=== PATIENT | female | born 1980 | race Caucasian/White ===

== ENCOUNTER 2018-10-22 16:03 | Emergency (ER) | payer BC ==
[2018-10-22] MEDS ORDERED: Ketorolac 60 MG/2 ML SDV IM ONE (16:28)
--- NOTE | 2018-10-22 17:08 | EDM.PDOC ---
ED HPI GENERAL MEDICAL PROBLEM - General Chief Complaint: General Stated Complaint: PAIN IN JAW Time Seen by Provider: 10/22/18 16:26 Source of Information: Reports: Patient History Limitations: Reports: No Limitations - History of Present Illness INITIAL COMMENTS - FREE TEXT/NARRATIVE: HISTORY AND PHYSICAL: History of present illness: Patient is a 38-year-old female presents to the ED today with concern for left TMJ pain. Patient states she has a long history of TMJ pain and that this is the exact same pain that she has had. Patient rates her pain a 10/10 and describes it as "achy". Patient states that she comes into the ED today because the Excedrin migraine pill that she took earlier today did not work for her pain. Patient states she took 1 pill this morning and took 1 pill this afternoon. Patient denies injury or trauma to the area. Patient has full range of motion of her jaw has been able to eat and drink appropriately. Patient denies fever, chills, chest pain, shortness of breath, or cough. Denies headache, neck stiff ness, change in vision, syncope, or near syncope. Denies nausea, vomiting, abdominal pain, diarrhea, constipation, or dysuria. Has not noted any blood in urine or stool. Review of systems: As per history of present illness and below otherwise all systems reviewed and negative. Past medical history: As per history of present illness and as reviewed below otherwise noncontributory. Surgical history: As per history of present illness and as reviewed below otherwise noncontributory. Social history: See social history for further information Family history: As per history of present illness and as reviewed below otherwise noncontributory. Physical exam: General: Patient is alert, oriented, and in no acute distress. Patient sitting comfortably on exam table. HEENT: Atraumatic, normocephalic, pupils equal and reactive bilaterally, negative for conjunctival pallor or scleral icterus, mucous membranes moist, TMs normal bilaterally, throat clear, neck supple, nontender, trachea midline. No drooling or trismus noted. No meningeal signs. No hot potato voice noted. Patient has full ROM of TMJ joint but expresses mild pain with ROM. There is no soft tissue edema, obvious deformity, or crepitus or pain to palpation of the TMJ or mandible. Negative pain to palpation of the maxillary sinus. Lungs: Clear to auscultation, breath sounds equal bilaterally, chest nontender. Heart: S1S2, regular rate and rhythm without overt murmur Abdomen: Soft, nondistended, nontender. Negative for masses or hepatosplenomegaly. Negative for costovertebral tenderness. Pelvis: Stable nontender. Genitourinary: Deferred. Rectal: Deferred. Skin: Intact, warm, dry. No lesions or rashes noted. Extremities: Atraumatic, negative for cords or calf pain. Neurovascular unremarkable. Neuro: Awake, alert, oriented. Cranial nerves II through XII unremarkable. Cerebellum unremarkable. Motor and sensory unremarkable throughout. Exam nonfocal. Notes: Patient does not desire labwork or imaging at this time and only requests help with pain management. Patient declines all imaging and lab work today. On exam, I was unable to determine where patient stated complaints are. Discussed proper dosing of ibuprofen and the importance of switching to this rather than Excedrin Migraine for pain relief. Discussed the importance of follow-up with the primary care provider. Supportive care measures were reviewed and discussed. Voices understanding and is agreeable to plan of care. Denies any further questions or concerns at this time. Diagnostics: None Therapeutics: Toradol Prescription: Diclofenac Impression: TMJ syndrome Plan: 1. Take medication as prescribed. You can also alternate Tylenol and ibuprofen as directed for pain and discomfort. 2. Apply heat and ice to the area 15 minutes on 15 minutes off to minimize pain and discomfort. 3. Follow with the primary care provider as discussed. 4. Return to the ED as needed and as discussed. Definitive disposition and diagnosis as appropriate pending reevaluation and review of above. left jaw Pain Score (Numeric/FACES): 10 - Related Data Allergies Allergy/AdvReac Type Severity Reaction Status Date / Time promethazine HCl Allergy Disorientat Verified 10/22/18 16:24 [From Phenergan] ion Home Meds: Home Meds Diclofenac Sodium [Voltaren] 75 mg PO BIDMEALS PRN #12 tab.cr 10/22/18 [Rx] Past Medical History - Past Health History Medical/Surgical History: Denies Medical/Surgical History Other HEENT History: TMJ Gastrointestinal History: Reports: Irritable Bowel Syndrome Other Gastrointestinal History: " hyper glycemic" - Infectious Disease History Infectious Disease History: Reports: Chicken Pox Social & Family History - Family History Family Medical History: Noncontributory - Tobacco Use Smoking Status *Q: Never Smoker - Caffeine Use Caffeine Use: Reports: Coffee - Recreational Drug Use Recreational Drug Use: No ED ROS GENERAL - Review of Systems Review Of Systems: ROS reveals no pertinent complaints other than HPI. ED EXAM, GENERAL - Physical Exam Exam: See Below (See dictation) Course - Vital Signs Last Recorded V/S: Last Vital Signs Temp 35.8 C 10/22/18 16:24 Pulse 65 10/22/18 16:24 Resp 18 10/22/18 16:24 BP 151/86 H 10/22/18 16:24 Pulse Ox 95 10/22/18 16:24 - Orders/Labs/Meds Meds: Medications Discontinued Medications Generic Name Dose Route Start Last Admin Trade Name Freq PRN Reason Stop Dose Admin Ketorolac Tromethamine 60 mg 10/22/18 16:28 10/22/18 16:33 Toradol IM 10/22/18 16:29 60 mg ONETIME ONE Administration Departure - Departure Time of Disposition: 17:07 Disposition: Home, Self-Care 01 Clinical Impression: TMJ (temporomandibular joint syndrome) - Discharge Information Prescriptions: Diclofenac Sodium [Voltaren] 75 mg PO BIDMEALS PRN #12 tab.cr PRN Reason: Pain Referrals: PCP,Unknown [Primary Care Provider] - Forms: ED Department Discharge Additional Instructions: The following information is given to patients seen in the emergency department who are being discharged to home. This information is to outline your options for follow-up care. We provide all patients seen in our emergency department with a follow-up referral. The need for follow-up, as well as the timing and circumstances, are variable depending upon the specifics of your emergency department visit. If you don't have a primary care physician on staff, we will provide you with a referral. We always advise you to contact your personal physician following an emergency department visit to inform them of the circumstance of the visit and for follow-up with them and/or the need for any referrals to a consulting specialist. The emergency department will also refer you to a specialist when appropriate. This referral assures that you have the opportunity for follow-up care with a specialist. All of these measure are taken in an effort to provide you with optimal care, which includes your follow-up. Under all circumstances we always encourage you to contact your private physician who remains a resource for coordinating your care. When calling for follow-up care, please make the office aware that this follow-up is from your recent emergency room visit. If for any reason you are refused follow-up, please contact the [facility] Emergency Department at and asked to speak to the emergency department charge nurse. [facility] Primary Care [address] [place] [address] [facility] [address] [place] [id number] 1. Take medication as prescribed. You can also alternate Tylenol and ibuprofen as directed for pain and discomfort. 2. Apply heat and ice to the area 15 minutes on 15 minutes off to minimize pain and discomfort. 3. Follow with the primary care provider as discussed. 4. Return to the ED as needed and as discussed.
[2018-10-22 17:18] VITALS: BP 131/79
== END 2018-10-22 17:17 | disposition home or self-care (01) ==
LOC: MW.ED 16:03
DX: M26.622 Arthralgia of left temporomandibular joint (principal); Z88.8 Allergy status to other drugs, medicaments and biological substances
CPT/HCPCS: 96372; 99283; J1885

== ENCOUNTER 2021-04-11 11:56 | Emergency (ER) | payer BC ==
--- NOTE | 2021-04-11 13:10 | EDM.PDOC ---
ED HPI GENERAL MEDICAL PROBLEM - General Chief Complaint: Genitourinary Problem Stated Complaint: BLADDER INFECT Time Seen by Provider: 04/11/21 12:10 - History of Present Illness INITIAL COMMENTS - FREE TEXT/NARRATIVE: History of present illness: [] The patient reports urgency to urinate. It is going on 2 to 3 days. She has no back pain no fever no vomiting. The patient has 2 prior UTIs. These were taken care of uneventfully with antibiotics. She does not have any systemic signs of sepsis and feels essentially okay except for the urgency. She wears a diaper but she is not incontinent contrary to the note in the triage record at the time that I first saw the patient. She insists that she has not been incontinent but wears a diaper in case she becomes incontinent because she is in such a hurry to go to the bathroom. Review of systems: As per history of present illness and below otherwise all systems reviewed and negative. Past medical history: As per history of present illness and as reviewed below otherwise noncontributory. Surgical history: As per history of present illness and as reviewed below otherwise noncontributory. Social history: No reported history of drug or alcohol abuse. Family history: As per history of present illness and as reviewed below otherwise noncontributory. Physical exam: Constitutional - well developed, well-nourished and in no acute distress HEENT - normocephalic, no evidence of trauma - external nose and mouth normal - no mass in neck and no JVD - mucosae moist EYES - full EOM, PERRL, no icterus - no evidence of inflammation, injection, or drainage Respiratory - no respiratory distress, equal bilateral expansion, lungs clear to auscultation and no abnormal lung sounds Cardiovascular - Regular Rhythm with S1 and S2 appreciated and no murmur, gallop or rub. GI - abdomen soft without distension or organomegaly - normal bowel sounds - no guard or rebound Musculoskeletal no gross deformity of long bones or joints - no tenderness, swelling or edema Neurologic - Alert and oriented times four - CN II-XII grossly intact - motor sensory and coordination symmetrically normal Psychiatric - appropriate mood and affect with normal thought content Hematologic - No petechiae or purpura - mucosa appropriate color and sclera not pale - normal nail bed color and refill Integument - no rash or evidence of trauma - normal turgor Diagnostics: [] Therapeutics: [] Impression: [] Plan: [] Definitive disposition and diagnosis as appropriate pending reevaluation and review of above. - Related Data Allergies Allergy/AdvReac Type Severity Reaction Status Date / Time promethazine HCl Allergy Disorientat Verified 04/11/21 12:19 [From Phenergan] ion Home Meds: Home Meds Celecoxib 04/11/21 [History] Cyclobenzaprine [Flexeril] 04/11/21 [History] atorvaSTATin [Lipitor] 04/11/21 [History] nitrofurantoin macrocrystaL [Macrodantin] 100 mg PO BID 5 Days #10 capsule 03/18 01/04 [Rx] Past Medical History - Past Health History Medical/Surgical History: Denies Medical/Surgical History Other HEENT History: TMJ Gastrointestinal History: Reports: Irritable Bowel Syndrome Other Gastrointestinal History: " hyper glycemic" - Infectious Disease History Infectious Disease History: Reports: Chicken Pox Social & Family History - Family History Family Medical History: No Pertinent Family History - Tobacco Use Second Hand Smoke Exposure: No - Caffeine Use Caffeine Use: Reports: None - Recreational Drug Use Recreational Drug Use: No ED ROS GENERAL - Review of Systems Review Of Systems: Comprehensive ROS is negative, except as noted in HPI. ED EXAM, GENERAL - Physical Exam Exam: See Below Free Text/Narrative:: My physical exam is in the HPI Course - Vital Signs Last Recorded V/S: Last Vital Signs Temp 35.9 C L 04/11/21 12:15 Pulse 69 04/11/21 12:15 Resp 20 04/11/21 12:15 BP 144/86 H 04/11/21 12:15 Pulse Ox 97 04/11/21 12:15 - Orders/Labs/Meds Orders: Active Orders 24 hr Category Date Time Status CULTURE URINE [MREF] Stat Lab 04/11/21 12:32 Ordered Labs: Laboratory Tests 04/11/21 Range/Units 12:15 Urine Color YELLOW Urine Appearance SLT CLOUDY Urine pH 7.0 (5.0-8.0) Ur Specific [place] 1.020 (1.001-1.035) Urine Protein NEGATIVE (NEGATIVE) mg/dL Urine Glucose (UA) NEGATIVE (NEGATIVE) mg/dL Urine Ketones TRACE H (NEGATIVE) mg/dL Urine Occult Blood TRACE-INTACT H (NEGATIVE) Urine Nitrite NEGATIVE (NEGATIVE) Urine Bilirubin NEGATIVE (NEGATIVE) Urine Urobilinogen 0.2 (<2.0) EU/dL Ur Leukocyte Esterase SMALL H (NEGATIVE) Urine RBC 1-2 (0-2/HPF) Urine WBC 8-12 (0-5/HPF) Ur Epithelial Cells FEW (NONE-FEW) Calcium Oxalate Crystal OCCASIONAL (NEGATIVE) Urine Bacteria FEW (NEGATIVE) Urine Mucus LIGHT (NONE-MOD) Urinalysis Comment Departure - Departure Time of Disposition: 13:10 Disposition: Home, Self-Care 01 Condition: Good Clinical Impression: Acute cystitis - Discharge Information Prescriptions: nitrofurantoin macrocrystaL [Macrodantin] 100 mg PO BID 5 Days #10 capsule Instructions: Urinary Tract Infection, Adult Referrals: Adalberto Pittman MD [Primary Care Provider] - Forms: ED Department Discharge Additional Instructions: Increase fluids. This is just as important as everything else we do. If he has severe back pain vomiting or high fever you need to return for reassessment. The culture was sent so that the doctor that follows you can make sure you on the best appropriate antibiotic. [facility] - Primary Care [address] [place] [address] [place] [address] The following information is given to patients seen in the emergency department who are being discharged to home. This information is to outline your options for follow-up care. We provide all patients seen in our emergency department with a follow-up referral. The need for follow-up, as well as the timing and circumstances, are variable depending upon the specifics of your emergency department visit. If you don't have a primary care physician on staff, we will provide you with a referral. We always advise you to contact your personal physician following an emergency department visit to inform them of the circumstance of the visit and for follow-up with them and/or the need for any referrals to a consulting specialist. The emergency department will also refer you to a specialist when appropriate. This referral assures that you have the opportunity for follow-up care with a specialist. All of these measure are taken in an effort to provide you with optimal care, which includes your follow-up. Under all circumstances we always encourage you to contact your private physician who remains a resource for coordinating your care. When calling for follow-up care, please make the office aware that this follow-up is from your recent emergency room visit. If for any reason you are refused follow-up, please contact the [facility] Emergency Department at and asked to speak to the emergency department charge nurse. Sepsis Event Note (ED) - Evaluation Sepsis Screening Result: No Definite Risk - Focused Exam Vital Signs: Vital Signs Temp Pulse Resp BP Pulse Ox 04/11/21 12:15 35.9 C L 69 20 144/86 H 97 - My Orders Last 24 Hours: My Active Orders 04/11/21 12:32 CULTURE URINE [MREF] Stat - Assessment/Plan Last 24 Hours: My Active Orders 04/11/21 12:32 CULTURE URINE [MREF] Stat
[2021-04-11 13:47] VITALS: BP 149/76; PULSE 62
== END 2021-04-11 13:47 | disposition home or self-care (01) ==
LOC: MW.ED 11:56
DX: N30.00 Acute cystitis without hematuria (principal); Z88.8 Allergy status to other drugs, medicaments and biological substances
CPT/HCPCS: 81001; 87086; 99283

== ENCOUNTER 2021-04-11 16:26 | Emergency (ER) | payer BC ==
[2021-04-11] MEDS ORDERED: Sodium Chloride 0.9% 2.5 ML Syringe FLUSH PRN (17:03)
[2021-04-11] MEDS ORDERED: Ketorolac 15 MG/ML SDV IVPUSH ONE (17:03)
[2021-04-11] MEDS ORDERED: Ondansetron 4 MG/2 ML SDV IVPUSH ONE (17:03)
[2021-04-11] MEDS ORDERED: Sodium Chloride 0.9% 10 ML Syringe FLUSH PRN (17:03)
[2021-04-11] MEDS ORDERED: Sodium Chloride 0.9% 1,000 ML IV ONE (17:04)
--- NOTE | 2021-04-11 17:06 | EDM.PDOC ---
ED HPI GENERAL MEDICAL PROBLEM - General Chief Complaint: Gastrointestinal Problem Stated Complaint: VOMITTING Time Seen by Provider: 04/11/21 16:39 - History of Present Illness INITIAL COMMENTS - FREE TEXT/NARRATIVE: History of present illness: [] Patient complains of back pain and vomiting. She has severe right flank pain like when she had kidney infection in the past. She also has suprapubic pain that radiates up to the right flank. She has nausea and vomiting. She was seen here earlier with cystitis. The urine was convincing for UTI and the patient was sent home on Macrodantin and increase fluids. Subsequently she developed what could be a sending signs. Review of systems: As per history of present illness and below otherwise all systems reviewed and negative. Past medical history: As per history of present illness and as reviewed below otherwise noncontributory. Surgical history: As per history of present illness and as reviewed below otherwise noncontributory. Social history: No reported history of drug or alcohol abuse. Family history: As per history of present illness and as reviewed below otherwise noncontributory. Physical exam: Constitutional - well developed, well-nourished and in no acute distress HEENT - normocephalic, no evidence of trauma - external nose and mouth normal - no mass in neck and no JVD - mucosae moist EYES - full EOM, PERRL, no icterus - no evidence of inflammation, injection, or drainage Respiratory - no respiratory distress, equal bilateral expansion, lungs clear to auscultation and no abnormal lung sounds Cardiovascular - Regular Rhythm with S1 and S2 appreciated and no murmur, gallop or rub. GI - abdomen soft without distension or organomegaly - normal bowel sounds - no guard or rebound Musculoskeletal no gross deformity of long bones or joints - no tenderness, swelling or edema Neurologic - Alert and oriented times four - CN II-XII grossly intact - motor sensory and coordination symmetrically normal Psychiatric - appropriate mood and affect with normal thought content Hematologic - No petechiae or purpura - mucosa appropriate color and sclera not pale - normal nail bed color and refill Integument - no rash or evidence of trauma - normal turgor Diagnostics: [] Therapeutics: [] Impression: [] Plan: [] Definitive disposition and diagnosis as appropriate pending reevaluation and review of above. Right Flank Pain Score (Numeric/FACES): 9 - Related Data Allergies Allergy/AdvReac Type Severity Reaction Status Date / Time promethazine HCl Allergy Disorientat Verified 04/11/21 12:19 [From Phenergan] ion Home Meds: Home Meds Celecoxib 04/11/21 [History] Cyclobenzaprine [Flexeril] 04/11/21 [History] Ondansetron [Zofran ODT] 4 mg PO Q6H PRN #10 tab.dis 04/11/21 [Rx] Phenazopyridine [Pyridium] 100 - 200 mg PO TID PRN #20 tab 04/11/21 [Rx] atorvaSTATin [Lipitor] 04/11/21 [History] nitrofurantoin macrocrystaL [Macrodantin] 100 mg PO BID 5 Days #10 capsule 04/11/21 [Rx] Past Medical History - Past Health History Medical/Surgical History: Denies Medical/Surgical History Other HEENT History: TMJ Gastrointestinal History: Reports: Irritable Bowel Syndrome Other Gastrointestinal History: " hyper glycemic" - Infectious Disease History Infectious Disease History: Reports: Chicken Pox Social & Family History - Family History Family Medical History: No Pertinent Family History - Caffeine Use Caffeine Use: Reports: None ED ROS GENERAL - Review of Systems Review Of Systems: Comprehensive ROS is negative, except as noted in HPI. ED EXAM, GENERAL - Physical Exam Exam: See Below Free Text/Narrative:: My physical exam is in the HPI Course - Vital Signs Text/Narrative:: 1827 labs reviewed and patient interviewed. Appears she has some ascending signs but not pyelonephritis or systemic infection. Last Recorded V/S: Last Vital Signs Temp 36.3 C 04/11/21 16:56 Pulse 67 04/11/21 16:56 Resp 15 04/11/21 16:56 BP 148/74 H 04/11/21 16:56 Pulse Ox 98 04/11/21 16:56 - Orders/Labs/Meds Orders: Active Orders 24 hr Category Date Time Status Sodium Chloride 0.9% [Saline Flush] Med 04/11/21 17:03 Active 10 ml FLUSH ASDIRECTED PRN Sodium Chloride 0.9% [Saline Flush] Med 04/11/21 17:03 Active 2.5 ml FLUSH ASDIRECTED PRN Saline Lock Insert [OM.PC] Stat Oth 04/11/21 17:03 Ordered Medication Orders Sodium Chloride (Sodium Chloride 0.9% 10 Ml Syringe) 10 ml FLUSH ASDIRECTED PRN PRN Reason: Keep Vein Open Last Admin: 04/11/21 17:25 Dose: 10 ml Documented by: XUAN Sodium Chloride (Sodium Chloride 0.9% 2.5 Ml Syringe) 2.5 ml FLUSH ASDIRECTED PRN PRN Reason: Keep Vein Open Last Admin: 04/11/21 17:25 Dose: 2.5 ml Documented by: XUAN Labs: Laboratory Tests 04/11/21 04/11/21 Range/Units 17:44 17:44 WBC 14.92 H (4.0-11.0) K/uL RBC 4.80 (4.30-5.90) M/uL Hgb 15.1 (12.0-16.0) g/dL Hct 43.1 (36.0-46.0) % MCV 89.8 (80.0-98.0) fL MCH 31.5 (27.0-32.0) pg MCHC 35.0 (31.0-37.0) g/dL RDW Std Deviation 43.8 (28.0-62.0) fl RDW Coeff of Amelia 13 (11.0-15.0) % Plt Count 321 (150-400) K/uL MPV 9.70 (7.40-12.00) fL Neut % (Auto) 75.2 (48.0-80.0) % Lymph % (Auto) 18.2 (16.0-40.0) % Dent % (Auto) 5.8 (0.0-15.0) % Eos % (Auto) 0.5 (0.0-7.0) % Baso % (Auto) 0.3 (0.0-1.5) % Neut # (Auto) 11.2 H (1.4-5.7) K/uL Lymph # (Auto) 2.7 H (0.6-2.4) K/uL Dent # (Auto) 0.9 H (0.0-0.8) K/uL Eos # (Auto) 0.1 (0.0-0.7) K/uL Baso # (Auto) 0.0 (0.0-0.1) K/uL Nucleated RBC % 0.0 /100WBC Nucleated RBCs # 0 K/uL Sodium 142 (136-145) mmol/L Potassium 3.3 L (3.5-5.1) mmol/L Chloride 101 (98-107) mmol/L Carbon Dioxide 30.0 (21.0-32.0) mmol/L BUN 8 (7.0-18.0) mg/dL Creatinine 1.2 H (0.6-1.0) mg/dL Est Cr Clr Drug Dosing 44.31 mL/min Estimated GFR (MDRD) 49.5 ml/min Glucose 141 H (74-106) mg/dL Calcium 11.2 H (8.5-10.1) mg/dL Total Bilirubin 0.4 (0.2-1.0) mg/dL AST 61 H (15-37) IU/L ALT 61 (14-63) IU/L Alkaline Phosphatase 98 (46-116) U/L Total Protein 8.5 H (6.4-8.2) g/dL Albumin 4.4 (3.4-5.0) g/dL Globulin 4.1 H (2.6-4.0) g/dL Albumin/Globulin Ratio 1.1 (0.9-1.6) Meds: Medications Generic Name Dose Route Start Last Admin Trade Name Freq PRN Reason Stop Dose Admin Sodium Chloride 10 ml 04/11/21 17:03 04/11/21 17:25 Sodium Chloride 0.9% 10 Ml Syringe FLUSH 10 ml ASDIRECTED PRN Administration Keep Vein Open Sodium Chloride 2.5 ml 04/11/21 17:03 04/11/21 17:25 Sodium Chloride 0.9% 2.5 Ml Syringe FLUSH 2.5 ml ASDIRECTED PRN Administration Keep Vein Open Discontinued Medications Generic Name Dose Route Start Last Admin Trade Name Freq PRN Reason Stop Dose Admin Sodium Chloride 1,000 mls @ 1,000 mls/hr 04/11/21 17:04 04/11/21 17:24 Normal Saline IV 04/11/21 18:03 1,000 mls/hr .Bolus ONE Administration Ceftriaxone Sodium/Dextrose 1 50 mls @ 100 mls/hr 04/11/21 17:56 04/11/21 18:23 gm/ Premix IV 04/11/21 18:25 100 mls/hr ONETIME ONE Administration Ketorolac Tromethamine 15 mg 04/11/21 17:03 04/11/21 17:24 Ketorolac 15 Mg/Ml Sdv IVPUSH 04/11/21 17:04 15 mg ONETIME ONE Administration Ondansetron HCl 4 mg 04/11/21 17:03 04/11/21 17:25 Ondansetron 4 Mg/2 Ml Sdv IVPUSH 04/11/21 17:04 4 mg ONETIME ONE Administration Phenazopyridine HCl 200 mg 04/11/21 18:24 04/11/21 18:30 Phenazopyridine 200 Mg Tab PO 04/11/21 18:25 200 mg ONETIME ONE Administration Departure - Departure Time of Disposition: 19:21 Disposition: Home, Self-Care 01 Condition: Good Clinical Impression: UTI, Urinary tract infectious disease - Discharge Information Prescriptions: Phenazopyridine [Pyridium] 100 - 200 mg PO TID PRN #20 tab PRN Reason: Dysuria Ondansetron [Zofran ODT] 4 mg PO Q6H PRN #10 tab.dis PRN Reason: Nausea Instructions: Urinary Tract Infection, Adult Referrals: Adalberto Pittman MD [Primary Care Provider] - Forms: ED Department Discharge Additional Instructions: Plenty fluids. Return if worse. [facility] - Primary Care [address] [place] [address] [place] [address] The following information is given to patients seen in the emergency department who are being discharged to home. This information is to outline your options for follow-up care. We provide all patients seen in our emergency department with a follow-up referral. The need for follow-up, as well as the timing and circumstances, are variable depending upon the specifics of your emergency department visit. If you don't have a primary care physician on staff, we will provide you with a referral. We always advise you to contact your personal physician following an emergency department visit to inform them of the circumstance of the visit and for follow-up with them and/or the need for any referrals to a consulting specialist. The emergency department will also refer you to a specialist when appropriate. This referral assures that you have the opportunity for follow-up care with a specialist. All of these measure are taken in an effort to provide you with optimal care, which includes your follow-up. Under all circumstances we always encourage you to contact your private physician who remains a resource for coordinating your care. When calling for follow-up care, please make the office aware that this follow-up is from your recent emergency room visit. If for any reason you are refused follow-up, please contact the [facility] Emergency Department at and asked to speak to the emergency department charge nurse. Sepsis Event Note (ED) - Focused Exam Vital Signs: Vital Signs Temp Pulse Resp BP Pulse Ox 04/11/21 16:56 36.3 C 67 15 148/74 H 98 - My Orders Last 24 Hours: My Active Orders 04/11/21 17:03 Sodium Chloride 0.9% [Saline Flush] 10 ml FLUSH ASDIRECTED PRN Sodium Chloride 0.9% [Saline Flush] 2.5 ml FLUSH ASDIRECTED PRN Saline Lock Insert [OM.PC] Stat - Assessment/Plan Last 24 Hours: My Active Orders 04/11/21 17:03 Sodium Chloride 0.9% [Saline Flush] 10 ml FLUSH ASDIRECTED PRN Sodium Chloride 0.9% [Saline Flush] 2.5 ml FLUSH ASDIRECTED PRN Saline Lock Insert [OM.PC] Stat
[2021-04-11] MEDS ORDERED: cefTRIAXone 1 GM in Premix Bag 1 BAG IV ONE (17:56)
[2021-04-11 18:11] LABS: POTASSIUM,K 3.3 mmol/L (3.5-5.1)
[2021-04-11] MEDS ORDERED: Phenazopyridine 200 MG Tab PO ONE (18:24)
[2021-04-11 19:33] VITALS: BP 123/76; PULSE 87
== END 2021-04-11 19:33 | disposition home or self-care (01) ==
LOC: MW.ED 16:26
DX: N39.0 Urinary tract infection, site not specified (principal); Z88.8 Allergy status to other drugs, medicaments and biological substances
CPT/HCPCS: 36415; 80053; 85025; 96365; 96375; 99284; A9270; J0696; J1885; J2405; J7030